=== PATIENT | male | born 1960 | race Caucasian/White ===

== ENCOUNTER 2021-02-26 08:32 | Outpatient (CLI) | payer OTHER, SELFPAY | END 2021-02-26 23:59 | disposition short-term general hospital (02) | LOC: LABSPEC 08:33 | PROVIDERS: Referring Provider Physician Assistant Surgical; Visit Provider Physician Assistant Surgical | DX: Z11.52 Encounter for screening for COVID-19 (principal) | CPT/HCPCS: 87635; U0003; U0005 ==